=== PATIENT | male | born 1965 ===

== ENCOUNTER 2020-08-26 17:19 | Emergency (ER) | payer OTHER ==
[~2020-08-26] VITALS: Ht 170.2 cm; Wt 77.1 kg
--- NOTE | 2020-08-26 17:25 | NUR ---
Pt MARYANN ESPINO, reports pt OD'd on Fentanyl, was blue on floor upon [facility] arrival, they performed CPR and administered 2 doses of 0.2mg Narcan prior to [facility] arrival at scene (at 1707); [facility] transported pt here. Pt states he smoked fentanyl, mistaking it for meth. Pt A&Ox4, denies CP, SOB, dizziness, n/v, no other complaints, no distress noted, but pt is somnolent.
--- NOTE | 2020-08-26 19:30 | NUR ---
IV D/C'D INTACT,. PT D/C'D HOME, ACI/RX X1 GIVEN. PT GOT DRESSED, AMBULATED W/O DIFF, TOOK ALL BELONGINGS.
[2020-08-26 19:36] VITALS: BP 149/95
== END 2020-08-26 19:30 | disposition home or self-care (01) ==
LOC: ER 17:25
DX: T40.411A Poisoning by fentanyl or fentanyl analogs, accidental (unintentional), initial encounter (principal); R40.1 Stupor; Y92.89 Other specified places as the place of occurrence of the external cause; F15.10 Other stimulant abuse, uncomplicated; F19.10 Other psychoactive substance abuse, uncomplicated; F11.10 Opioid abuse, uncomplicated; R03.0 Elevated blood-pressure reading, without diagnosis of hypertension
CPT/HCPCS: A4663